=== PATIENT | male | born 1985 | race Caucasian/White ===

== ENCOUNTER 2016-07-17 17:54 | Emergency (ER) | payer SELFPAY ==
[~2016-07-17 17:54] MED LIST: ALBUTEROL17 GM INH; CLEOCIN PO; CLEOCIN150 M2 PO; FLEXERIL10 MG PO; IBUPROFEN PO; MEDROL DOSEPAK4 MG DOB; MOTRIN400 MG PO; NO MEDICATIONS; ONDANSETRON ODT4 MG SL; PHENERGAN W/CO120 ML PO; TYLENOL #3 PO; VOLTAREN50 MG PO; ZITHROMAX PO; ZITHROMAX1 G/PKT PO
[2016-07-17 17:56] LABS: INFLUENZA A NEG (NEG); INFLUENZA B NEG (NEG)
== END 2016-07-17 18:43 | disposition home or self-care (01) ==
LOC: SED 17:54
PROVIDERS: Nurse Practitioner Family
DX: J20.9 Acute bronchitis, unspecified (principal); J02.0 Streptococcal pharyngitis; I10 Essential (primary) hypertension; Z88.0 Allergy status to penicillin; F17.210 Nicotine dependence, cigarettes, uncomplicated
CPT/HCPCS: 87804; 87880; 99283

== ENCOUNTER 2016-09-20 15:05 | Emergency (ER) | payer SELFPAY ==
--- NOTE | ~2016-09-20 | CR116 ---
[facility] A Service of [facility] & [facility] RADIOLOGY TEXT RESULTS PATIENT: TESSA KNOWLES II LOCATION: [facility] : 83 UNIT #: [id number] AGE: [address]: CLEMENT MUNOZ SEX: M ORDER DR: [id number] [facility] [address] [place], [place] [address] [id number] MR#: [id number] Acc #: [id number] NAME: TESSA KNOWLES II : 1985 SEX: M STUDY DATE/TIME: 09/20/2016 16:09 UNIT: [facility] ROOM: STUDY DESCRIPTION: CR Finger 2 View Thumb Lt Attending Physician: Clement Munoz A.P.R.N. Ordering Physician: Clement Munoz A.P.R.N. Primary Care Physician: No Primary Care Physician MEDICAL IMAGING REPORT This report is preliminary unless electronic signature is present EXAM Left thumb 3 views HISTORY Laceration today. Pain. FINDINGS 3 views of the right thumb demonstrate fracture of the tip of the distal phalangeal tuft with approximately 2 mm displacement of fracture fragments measuring 2 mm and 3 mm, and overlying soft tissue injury along the volar margin of the thumb tip. No intraarticular fracture extension. No dislocation. Dictated by... Carlitos Wright M.D. THIS IS AN ELECTRONICALLY VERIFIED REPORT Carlitos Wright M.D. at 09/21/2016 2:35 PM DFL/rnr TD: 09/21/2016 05:46 JOB #: [id number] MEDICAL IMAGING REPORT Page 1 of 1 COPY
== END 2016-09-20 18:29 | disposition home or self-care (01) ==
LOC: CFTX 15:05 → CED 15:05 → CFTX 16:08 → CED 16:08 → CFTX 18:29
DX: S62.522A Displaced fracture of distal phalanx of left thumb, initial encounter for closed fracture (principal); I10 Essential (primary) hypertension; S61.012A Laceration without foreign body of left thumb without damage to nail, initial encounter; F17.200 Nicotine dependence, unspecified, uncomplicated; W45.8XXA Other foreign body or object entering through skin, initial encounter; Z88.1 Allergy status to other antibiotic agents; Z88.0 Allergy status to penicillin; Z23 Encounter for immunization
CPT/HCPCS: 12001; 73140; 90471; 90715; 96372; 99283

== ENCOUNTER 2016-11-01 20:58 | Emergency (ER) | payer SELFPAY ==
[2016-11-01] MEDS ORDERED: MOTRIN IB200 M1 (21:06)
== END 2016-11-01 22:10 | disposition home or self-care (01) ==
LOC: SED 20:58
DX: K04.7 Periapical abscess without sinus (principal); I10 Essential (primary) hypertension; F17.210 Nicotine dependence, cigarettes, uncomplicated; Z88.1 Allergy status to other antibiotic agents; Z88.0 Allergy status to penicillin
CPT/HCPCS: 99282

== ENCOUNTER 2016-12-07 18:46 | Emergency (ER) | payer OTHER ==
[~2016-12-07] VITALS: Ht 175.3 cm; Wt 99.8 kg
[~2016-12-07 18:46] MED LIST changes: +MOTRIN IB200 M1
== END 2016-12-07 20:05 | disposition home or self-care (01) ==
LOC: SED 18:46
DX: S81.812A Laceration without foreign body, left lower leg, initial encounter (principal); I10 Essential (primary) hypertension; F17.210 Nicotine dependence, cigarettes, uncomplicated; W22.8XXA Striking against or struck by other objects, initial encounter; Y92.69 Other specified industrial and construction area as the place of occurrence of the external cause; Y93.89 Activity, other specified; Y99.0 Civilian activity done for income or pay
CPT/HCPCS: 12032; 99283